=== PATIENT | male | born 1940 | race Caucasian/White ===

== ENCOUNTER 2016-09-06 09:43 | Inpatient (IN) | payer OTHER ==
[2016-08-24 11:22] VITALS: BMI 29.0
--- NOTE | 2016-08-24 11:55 | PAT Medication Instructions ---
Service Date Aug 24, 2016. Current Home Medication List Red Yeast Rice Extract (Red Yeast Rice), 1 CAP PO QAM Medication Instructions For Your Scheduled Surgery - Hold the following medications 2 weeks prior to surgery: Red Yeast Rice Extract (Red Yeast Rice), 1 CAP PO QAM *Nothing to eat or drink after midnight* If you have any questions please call us at [phone] or [phone] or [phone]
--- NOTE | 2016-08-24 12:34 | DIAGNOSTIC IMAGING REPORT ---
CHEST PREADMISSION(PA/LAT) CLINICAL HISTORY: Preoperative chest COMPARISON STUDY: No previous studies for comparison. FINDINGS: The cardiac and mediastinal contours are normal. There is no evidence of focal pulmonary consolidation. There is no evidence of failure. No pleural effusions are visualized.[ IMPRESSION: No active disease in the chest. Electronically signed by: Jimmy Smith M.D. 08/24/2016 12:33 PM Dictated Date/Time: 08/24/2016 12:33 PM
[2016-08-24 12:37] LABS: BASO % 0.2 %; BASO ABS # 0.02 K/uL (0-0.2); COMPLETE YES; EOS % 1.7 %; HEMATOCRIT 41.2 % (42-52); IG% 0.2 %; LYMPH % 17.6 %; LYMPH ABS # 1.67 K/uL (1.2-3.4); MEAN CELL VOLUME 93.4 fL (80-100); MEAN CORPUSCULAR HEMOGLOBIN 31.7 pg (25-34); MEAN PLATELET VOLUME 10.8 fL (7.4-10.4); MONO % 7.1 %; NEUT % 73.2 %; PLATELET COUNT 302 K/uL (130-400); RED BLOOD COUNT 4.41 M/uL (4.7-6.1); WHITE BLOOD COUNT 9.48 K/uL (4.8-10.8)
[2016-08-24 12:41] LABS: URINE APPEARANCE CLEAR (CLEAR); URINE BILIRUBIN NEG (NEG); URINE COLOR YELLOW; URINE NITRITE NEG (NEG); URINE PH 5.5 (4.5-7.5); URINE SPECIFIC GRAVITY 1.005 (1.000-1.030); UROBILINOGEN NEG (NEG)
[2016-08-24 12:42] LABS: MANUAL MICROSCOPIC REQUIRED? NO; REVIEW REQ? NO
[2016-08-24 12:57] LABS: PARTIAL THROMBOPLASTIN RATIO 1.1; PROTHROMBIN TIME (PATIENT) 10.7 SECONDS (9.0-12.0)
[2016-08-24 13:20] LABS: ESTIMATED AVERAGE GLUCOSE 117 mg/dl; HA1C FLAG Normal (Normal)
[2016-08-24 13:34] LABS: BUN/CREATININE RATIO 24.3 (10-20); CREATININE 0.77 mg/dl (0.60-1.40)
--- NOTE | 2016-08-29 09:47 | HISTORY & PHYSICAL EXAMINATION ---
DATE OF ADMISSION: 09/06/2016 CHIEF COMPLAINT: Left knee pain. HISTORY OF PRESENT ILLNESS: The patient is a 75-year-old gentleman with known osteoarthritis about his left knee. He recently had a corticosteroid injection by his family physician without significant benefit. He presented to our office for further evaluation. X-rays noted advanced degenerative changes and the decision was made to proceed with left total knee arthroplasty. PAST MEDICAL HISTORY: Denies. PAST SURGICAL HISTORY: None. MEDICATIONS: None. ALLERGIES: No known drug allergies. SOCIAL HISTORY AND REVIEW OF SYSTEMS: Noncontributory. PHYSICAL EXAMINATION: GENERAL: Well-nourished, well-developed elderly male who appears his stated age. HEAD, EYES, EARS, NOSE, AND THROAT: Normocephalic, atraumatic, extraocular movements intact, oropharynx pink and moist. NECK: Supple without adenopathy. LUNGS: Clear to auscultation bilaterally. HEART: Regular rate and rhythm. ABDOMEN: Soft, nontender, nondistended. EXTREMITIES: The upper extremity within normal limits. The left knee has a slight varus alignment. He complains primarily of medial compartment pain. His range of motion from 0 to 125 degrees. He has mild crepitus with range of motion. X-RAYS: X-rays were reviewed. He has a slight varus aligned knee. He has bone on bone arthritis of the medial compartment. There is moderate osteophyte formation and degenerative changes about the patellofemoral joint as well. ASSESSMENT: Left knee degenerative joint disease. PLAN: Risks versus benefits were discussed. Consent was obtained. The patient's primary care physician is Dr. Browning. Will proceed with left total knee arthroplasty upon preoperative workup and medical clearance.
[2016-09-06] VITALS (7 sets, daily range): BP systolic 126–161; BP diastolic 69–83; PULSE 30–70; TEMP 36–36.7; O2SAT 94–99; Ht 165.1 cm; Wt 79.2 kg
[~2016-09-06] VITALS: Ht 165.1 cm; Wt 79.2 kg
[~2016-09-06 09:43] MED LIST: ACETAMINOPHEN 500 MG TAB PO SCH; ATROPINE SULFATE 0.1 MG/ML 5ML SYR IV PRN; BUPIVACAINE 0.25% 30 ML VIAL ONE; BUPIVACAINE 0.5 % 5 MG/1 ML PF 10ML VIAL ONE; CEFAZOLIN 2000 MG/60 ML D5W 60 ML IV SCH; CeleBREX 200 MG CAP PO SCH; DEXAMETHASONE 4 MG TAB PO SCH; EpHEDrine SULFATE INJ 50 MG/ML AMP IV PRN; FAMOTIDINE 20 MG TAB PO SCH; FENTANYL CITRATE INJ 50 MCG/1 ML 2 ML VIAL IV PRN; GABAPENTIN 300 MG CAP PO SCH; LACTATED RINGER'S 1000ML 1,000 ML IV SCH; LACTATED RINGER'S 1000ML 500 ML IV SCH; LACTATED RINGER'S 1000ML IV SCH; ONDANSETRON INJ 2 MG/ML 2 ML VIAL IV PRN; RED1CAP5 PO; ROPIVACAINE 5MG/ML 30 ML 150 MG, BUPIVACAINE/EPINEPHR 0.5% MPF 30 ML, KETOROLAC TROMETH... INFIL SCH
--- NOTE | 2016-09-06 10:20 | History & Physical Bridge Note ---
H&P Re-Evaluation Bridge Note: I have examined the patient, reviewed the History & Physical and in the interval since the performance of the History & Physical I have noted the following changes of clinical significance: No changes noted
[2016-09-06] MEDS ORDERED: NURSING VERBAL MED ORDER ONE (10:30)
[2016-09-06] MEDS ORDERED: MIDAZOLAM HCL 1 MG/ML 2ML VIAL ONE (11:10)
[2016-09-06] MEDS ORDERED: FENTANYL CITRATE INJ 50 MCG/1 ML 2 ML VIAL ONE ×2 (11:10→13:01)
[2016-09-06] MEDS: TRANEXAMIC ACID AMP 1,000 MG in NSS 100ML IV SCH ×2 (11:30→11:34)
[2016-09-06] MEDS ORDERED: POVIDONE-IODINE OP SOLN 30 ML BTL ONE (11:31)
[2016-09-06] MEDS ORDERED: ORTHO JOINT ANESTHETIC ONE (11:31)
[2016-09-06] MEDS ORDERED: BACITRACIN 50000 UNIT VIAL ONE (11:31)
[2016-09-06] MEDS ORDERED: ONDANSETRON INJ 2 MG/ML 2 ML VIAL ONE (13:28)
[2016-09-06] MEDS ORDERED: LIDOCAINE HCL 2% 2 ML VIAL (20MG/ML) ONE (13:28)
[2016-09-06] MEDS ORDERED: ESMOLOL HCL 10 MG/ML 10 ML VIAL ONE (13:28)
[2016-09-06] MEDS ORDERED: ATROPINE SULFATE 0.4 MG/ML 1 ML VIAL ONE (13:28)
[2016-09-06] MEDS ORDERED: PROPOFOL IV EMULSION 10 MG/ML 20 ML VIAL IV ONE (13:28)
[2016-09-06] MEDS ORDERED: GLYCOPYRROLATE INJ 0.2 MG/ML VIAL ONE (13:28)
[2016-09-06] MEDS ORDERED: DEXAMETHASONE SOD INJ 4 MG/ML VIAL ONE (13:28)
--- NOTE | 2016-09-06 13:35 | [facility] Post Operative Brief Note ---
Immediate Operative Summary Operative Date Sep 06, 2016. Pre-Operative Diagnosis Left knee degenerative joint disease Post-Operative Diagnosis left knee degerative joint disease Procedure(s) Performed Left total knee arthroplasty Surgeon Dr. Loving Electrician Master Surgeon(s) Yann Fernandez PA-C Estimated Blood Loss 20cc Findings oa Specimens A. Left knee bone and tissue Disposition Recovery Room / PACU
[2016-09-06] MEDS ORDERED: ALUMINUM/MAGNESIUM/SIMETH (MAALOX MAX) 30 ML UDC PO PRN (14:15)
[2016-09-06] MEDS ORDERED: DiphenhydrAMINE HCL 50 MG/ML VIAL IV PRN (14:15)
[2016-09-06] MEDS ORDERED: TAMSULOSIN HCL 0.4 MG CAP PO PRN (14:15)
[2016-09-06] MEDS ORDERED: MAGNESIUM HYDROXIDE SUSP 30 ML UDC PO PRN (14:15)
[2016-09-06] MEDS ORDERED: ZOLPIDEM TARTRATE 5 MG TAB PO PRN (14:15)
[2016-09-06] MEDS ORDERED: OXYCODONE HCL IR 5 MG TAB (IMMEDIATE RELEASE) PO PRN (14:15)
[2016-09-06] MEDS ORDERED: ONDANSETRON INJ 2 MG/ML 2 ML VIAL IV PRN (14:15)
[2016-09-06] MEDS ORDERED: MoRPHine SULFATE 2 MG/ML CARP IV PRN (14:15)
[2016-09-06] MEDS ORDERED: BISACODYL 10 MG SUPP PR PRN (14:15)
--- NOTE | 2016-09-06 14:37 | DIAGNOSTIC IMAGING REPORT ---
LEFT KNEE 1 OR 2 VIEWS ROUTINE CLINICAL HISTORY: Postoperative evaluation COMPARISON: None FINDINGS: Alignment of the total left knee arthroplasty is anatomic. There is no fracture or unexpected radiopaque foreign body. Drains and skin elizabeth are present. IMPRESSION: Expected findings following total left knee arthroplasty. Electronically signed by: Lokesh Cerna M.D. 09/06/2016 2:36 PM Dictated Date/Time: 09/06/2016 2:36 PM
--- NOTE | 2016-09-06 14:58 | Anesthesiology Progress Note ---
Anesthesia Post Op Note Date & Time Sep 06, 2016 at 14:58 Vital Signs Pain Intensity: 0 Vital Signs Past 12 Hours Date Time Temp Pulse Resp B/P Pulse Ox O2 Delivery O2 Flow Rate FiO2 09/06/16 14:50 36.3 76 16 132/76 98 Nasal Cannula 2 09/06/16 14:40 75 16 136/74 97 Nasal Cannula 2 09/06/16 14:30 78 16 125/69 98 Mask 5 09/06/16 14:20 77 16 141/73 98 Mask 10 09/06/16 14:10 90 16 132/72 97 Mask 10 09/06/16 14:09 36.6 94 16 121/76 95 Mask 10 09/06/16 10:19 36.5 30 20 161/83 97 Room Air Notes Mental Status: alert / awake / arousable, participated in evaluation Pt Amnestic to Procedure: Yes Nausea / Vomiting: adequately controlled Pain: adequately controlled Airway Patency, RR, SpO2: stable & adequate BP & HR: stable & adequate Hydration State: stable & adequate Anesthetic Complications: no major complications apparent
--- NOTE | 2016-09-06 15:37 | OPERATIVE REPORT ---
DATE OF OPERATION: 09/06/2016 PREOPERATIVE DIAGNOSIS: Osteoarthritis left knee. POSTOPERATIVE DIAGNOSIS: Osteoarthritis left knee. PROCEDURE: Left total knee arthroplasty. SURGEON: Dr. Loving. SHINGLER: Yann Fernandez PA-C. ANESTHESIA: Spinal. COMPLICATIONS: None. OPERATION AND FINDINGS: Following induction of spinal anesthesia, the patient's left leg was prepped and draped in the usual sterile manner. Limb was exsanguinated with an Esmarch bandage and tourniquet was inflated to 350 mmHg. A longitudinal incision was made anteriorly. Subcutaneous tissue was sharply dissected. Electrocautery was used for hemostasis. Prepatellar bursa was incised and median parapatellar incision was performed. Patella was everted and the knee was flexed. Fat pad was removed to aid in visualization and the anterior and posterior cruciate ligaments were removed. The medial face of the tibia was cleared of soft tissue first with a Bovie and a Cope elevator. This tissue was retracted posteriorly using a blunt Hohmann. A Prakash retractor was used to expose the synovium above on the anterior aspect of the femur and this was removed down to bone. The PSI guide was placed on the distal femur and two pins were placed anteriorly and kept in position and two additional pins were placed distally and removed. The distal femoral cutting block was placed in position and the distal femoral cut was used in the +0 setting. Next, the cutting block was removed and the size 4 block was placed in the distal end of the femur. Care was taken to ensure appropriate external rotation and feeler gauge was used to ensure no notching would occur. The femoral block was centered on the distal femur and in the medial and lateral direction and was fixed using two bone screws. The gold pins were then removed. The oscillating saw was used to create the bone cuts and the distal femoral cutting block was removed and the reciprocating saw was used to further trim the femoral cuts as well as a deep in the area for the trochlear groove. Next, posterior condyle remnants were removed. Following this, a meniscal clamp and knife were utilized to remove the anterior portion of both medial and lateral meniscus. The proximal tibia PSI guide was placed into position and the proximal tibial cutting guide was screwed into position. The extra medullary alignment guide was utilized to ensure appropriate alignment. The proximal tibia was cut and the proximal tibial cutting block was removed and this bone fragment was removed. The appropriate guide was used to perform the notch cut on the distal femur and a lamina practice director and a cochlear knife were utilized to finish both medial and lateral meniscectomies to remove any remnants of the posterior or anterior cruciate ligaments. Following this, the distal femoral component was impacted into position and blunt Dianna was used to sublux the tibia anteriorly. The proximal tibia was sized and a size 3 tibial tray was chosen as the size to be used. This was put into position and appropriate external rotation and a double check with extramedullary alignment guide was performed. The canal for the tibial stem was prepared first with a 17 mm drill and then the punch and a mallet and the trial tibial poly was placed. A size 9 was chosen the size to be used. It was brought to extension and the patella was prepared with the patellar reamer. A size 36 component was chosen the size to be used. The trial component was placed and knee was taken through a full range of motion and there was found to be no lateral subluxation of the tibia. No lateral release was required. The trials were all removed. The final components were obtained and assembled. Cement was mixed. The knee was thoroughly irrigated and the ortho mix was injected about the knee joint. The final components were cemented into position. After thoroughly suctioning and drying the bone ends, all excess cement was removed. The knee was held in extension while the cement hardened. The wound was irrigated and closed over a Hemovac drain. #1 Vicryl was used to close the extensor mechanism. Subcutaneous tissues closed using 0 Dexon. Skin was closed with elizabeth. Sterile dressing of Adaptic, 4 x 4's, sterile Webril, and Joao was applied. The patient tolerated the procedure well. Recovery room stable. Due to the complex nature of the procedure, the entire surgery was performed with the operational assistance of Yann Fernandez PA-C. The phlebotomist medical lab assistant, under direct supervision, was involved in the actual performance of all aspects of the surgical procedure including hemostasis, tissue retraction and incision, instrument management, patient positioning, and wound closure. I attest to the content of the Intraoperative Record and any orders documented therein. Any exceptio ns are noted below.
[2016-09-06] MEDS ORDERED: MoRPHine SULFATE 10 MG/ML CARP/VIAL IV PRN (16:15)
[2016-09-06] MEDS ORDERED: MoRPHine SULFATE 4 MG/ML 1 ML CARP\\VIAL IV PRN (16:15)
[2016-09-06] MEDS: D5W AND 1/2NSS + 20MEQ KCL 1,000 ML IV SCH (16:57)
[2016-09-06] MEDS: ACETAMINOPHEN 500 MG TAB PO SCH (17:49)
[2016-09-06] MEDS: KETOROLAC TROMETHAMINE 15 MG/ML VIAL IV. SCH ×2 (17:50→23:37)
[2016-09-06] MEDS: FERROUS GLUCONATE 324 MG TAB PO SCH (17:50)
[2016-09-06] MEDS: CEFAZOLIN IV 2,000 MG in DEXTROSE 5% 50ML 50 ML IV SCH (20:49)
[2016-09-06] MEDS: SENNA 8.6 MG TAB PO SCH (20:50)
[2016-09-06] MEDS: OXYCODONE HCL 10 MG TABCR (OXYCONTIN) PO SCH (20:50)
[2016-09-06] MEDS: ASPIRIN 81 MG ECTAB PO SCH (20:50)
[2016-09-06] MEDS: DOCUSATE SODIUM 100 MG CAP PO SCH (20:50)
[2016-09-07] VITALS (7 sets, daily range): BP systolic 125–144; BP diastolic 52–73; PULSE 52–65; TEMP 36.4–36.7; O2SAT 94–98
[2016-09-07] MEDS: ACETAMINOPHEN 500 MG TAB PO SCH ×3 (02:00→19:02)
[2016-09-07] MEDS: D5W AND 1/2NSS + 20MEQ KCL 1,000 ML IV SCH (02:03)
[2016-09-07] MEDS: CEFAZOLIN IV 2,000 MG in DEXTROSE 5% 50ML 50 ML IV SCH (03:46)
[2016-09-07 05:27] LABS: HEMATOCRIT 38.7 % (42-52); MEAN CELL VOLUME 94.9 fL (80-100); MEAN CORPUSCULAR HEMOGLOBIN 32.1 pg (25-34); MEAN CORPUSCULAR HGB CONC 33.9 g/dl (32-36); MEAN PLATELET VOLUME 10.4 fL (7.4-10.4); PLATELET COUNT 303 K/uL (130-400); RED BLOOD COUNT 4.08 M/uL (4.7-6.1); WHITE BLOOD COUNT 13.92 K/uL (4.8-10.8)
[2016-09-07 05:56] LABS: BUN/CREATININE RATIO 15.4 (10-20); CALCIUM 7.6 mg/dl (8.5-10.1); POTASSIUM 4.5 mmol/L (3.5-5.1)
[2016-09-07] MEDS: KETOROLAC TROMETHAMINE 15 MG/ML VIAL IV. SCH ×2 (06:08→12:22)
--- NOTE | 2016-09-07 07:35 | Orthopedic Progress Note ---
Orthopedic Progress Note Date of Service Sep 07, 2016. Subjective Post OP Day: 1 Reports: feeling well Objective N/V intact, dressing C/D/I (Hemovac in place), toes mobile Date Time Temp Pulse Resp B/P Pulse Ox O2 Delivery O2 Flow Rate FiO2 09/07/16 03:50 36.4 55 18 125/62 98 Room Air 09/06/16 23:30 Room Air 09/06/16 23:00 36.6 52 18 126/71 94 Room Air 09/06/16 18:45 36.6 70 16 126/69 95 Room Air 09/06/16 17:36 36.7 69 18 157/78 99 2.0 09/06/16 16:33 36.0 61 16 145/73 98 Nasal Cannula 2.0 09/06/16 16:00 36.4 58 16 153/75 97 Nasal Cannula 2.0 09/06/16 15:55 97 Nasal Cannula 2.0 09/06/16 15:30 97 Nasal Cannula 2.0 09/06/16 15:20 58 16 132/73 98 Nasal Cannula 2 09/06/16 15:05 59 16 133/74 98 Nasal Cannula 2 09/06/16 14:50 36.3 76 16 132/76 98 Nasal Cannula 2 09/06/16 14:40 75 16 136/74 97 Nasal Cannula 2 09/06/16 14:30 78 16 125/69 98 Mask 5 09/06/16 14:20 77 16 141/73 98 Mask 10 09/06/16 14:10 90 16 132/72 97 Mask 10 09/06/16 14:09 36.6 94 16 121/76 95 Mask 10 09/06/16 10:19 36.5 30 20 161/83 97 Room Air Laboratory Results 24 Hours: Test 09/07/16 05:14 Hematocrit 38.7 % Hemoglobin 13.1 g/dL Assessment & Plan Assessment: 75 yo male stable POD #1 s/p left TKA Plan: 1. Med management 2. DVT prophylaxis- ASA, TEDs, SCDs 3. PT/OT 4. D/C planning- home w/ OPPT
[2016-09-07] MEDS: FERROUS GLUCONATE 324 MG TAB PO SCH ×3 (09:18→19:02)
[2016-09-07] MEDS: ASPIRIN 81 MG ECTAB PO SCH ×2 (09:19→20:27)
[2016-09-07] MEDS: MULTIVITAMIN TAB PO SCH (09:19)
[2016-09-07] MEDS: PANTOprazole SOD 40 MG TAB PO SCH (09:19)
[2016-09-07] MEDS: DOCUSATE SODIUM 100 MG CAP PO SCH ×2 (09:19→20:27)
[2016-09-07] MEDS: OXYCODONE HCL 10 MG TABCR (OXYCONTIN) PO SCH ×2 (09:22→20:26)
[2016-09-07] MEDS: SENNA 8.6 MG TAB PO SCH (20:27)
[2016-09-08] MEDS: ACETAMINOPHEN 500 MG TAB PO SCH ×2 (03:30→10:04)
[2016-09-08 06:23] VITALS: BP 151/70; PULSE 69; TEMP 36.7; O2SAT 93
--- NOTE | 2016-09-08 07:31 | Orthopedic Progress Note ---
Orthopedic Progress Note Date of Service Sep 08, 2016. Subjective Post OP Day: 2 Reports: feeling well, pain controlled w PO medications, Denies: SOB, calf pain , chest pain, complaints, light headedness, nausea / vomiting Additional Notes: PER PT patient did very well and feels that he is able to go home instead of rehab, patient agrees as his son lives next door to him and can take him to PT and help at home. Objective calves soft nontender, N/V intact, capillary refill less than 2 sec., dressing C /D/I, A&O x3, toes mobile Silverlon in tact. Date Time Temp Pulse Resp B/P Pulse Ox O2 Delivery O2 Flow Rate FiO2 09/08/16 06:23 36.7 69 18 151/70 93 Room Air 09/08/16 00:00 Room Air 09/07/16 23:11 36.6 65 16 144/59 94 Room Air 09/07/16 17:36 62 138/73 09/07/16 15:30 Room Air 09/07/16 14:57 36.7 63 18 137/52 96 Room Air 09/07/16 11:52 36.6 60 14 128/70 96 Room Air 09/07/16 08:37 97 Room Air 09/07/16 08:19 36.7 52 16 127/73 97 Room Air Assessment & Plan Assessment: 75 yo male stable POD #2 s/p left TKA Plan: 1. Med management 2. DVT prophylaxis- ASA, TEDs, SCDs 3. PT/OT 4. D/C planning- Home w OPPT today. Inhouse Planning Pain Management: Oxycontin, Morphine, PO Tylenol, Oxy IR DVT Prophylaxis: TEDs, SCDs, ASA Discharge Planning Discharge Planning: home with oppt Pain Management: Oxycontin, PO Tylenol, Oxy IR DVT Prophylaxis: TEDs, ASA Therapy: Physical Therapy, Occupational Therapy
[2016-09-08] MEDS: OXYCODONE HCL 10 MG TABCR (OXYCONTIN) PO SCH (07:35)
[2016-09-08] MEDS: FERROUS GLUCONATE 324 MG TAB PO SCH (07:36)
[2016-09-08] MEDS: PANTOprazole SOD 40 MG TAB PO SCH (07:36)
[2016-09-08] MEDS: DOCUSATE SODIUM 100 MG CAP PO SCH (07:36)
[2016-09-08] MEDS: ASPIRIN 81 MG ECTAB PO SCH (07:36)
[2016-09-08] MEDS: MULTIVITAMIN TAB PO SCH (07:36)
[2016-09-08 07:51] VITALS: BP 159/89; PULSE 77; TEMP 36.7; O2SAT 97
[2016-09-08 08:09] VITALS: BP 152/89; PULSE 77; TEMP 36.7; O2SAT 97
[2016-09-08] MEDS ORDERED: ONDA8TAB6 PO (08:58)
[2016-09-08] MEDS ORDERED: OXYSR10 PO (08:58)
[2016-09-08] MEDS ORDERED: ASPEC81 PO (08:58)
[2016-09-08] MEDS ORDERED: ACET-1138 PO (08:58)
[2016-09-08] MEDS ORDERED: RXC5 PO (08:58)
--- NOTE | 2016-09-08 08:58 | Discharge Instructions ---
Discharge Instructions Admission Reason for Admission: Left Knee Degenerative Joint Disease Discharge Discharge Diagnosis / Problem: Lt TKA Discharge Goals Goal(s): Improve function Activity Recommendations Activity Limitations: as noted below . Instructions / Follow-Up Instructions / Follow-Up ACTIVITY RECOMMENDATIONS: SELF CARE INSTRUCTIONS AFTER TOTAL KNEE REPLACEMENT A. You may need to continue a physical therapy program after discharge from the hospital. There are several options available to you. Your doctor will assist you in selecting the best one for you. 1. An out-patient facility 2 to 3 times a week for therapy or home therapy. 2. Continue working on all exercises taught to you in the hospital. Your goals should be to increase bending of your knee to 90 degrees and beyond and to fully straighten your knee. B. You may progress at your own pace from walking with a walker or crutches to a cane; then to no assistive devices. C. Make walking a part of your daily routine. Be up as much as comfortable with rest periods throughout the day. Rest with leg elevation is very important. Use the ice wrap frequently for the first 3-4 weeks. D. There are no restrictions on activities. You may ride in a car, shop, participate in ore dryer and all social activities. E. Wear the long elastic stockings (DANIELLE hose) 20 hours a day for 2 weeks after surgery. They can be removed several times a day for laundering and for a bath. F. You may shower, no tub baths until cleared by your doctor. SPECIAL CARE INSTRUCTIONS: VERY IMPORTANT TO READ AND REVIEW A. There are a few signs you need to watch for after you are home. Call [facility] if you notice any of the followin. Increased severe knee pain. Some pain is expected especially when you exercise. 2. Increased swelling in your leg or knee; pain or swelling of the calf muscle in either lower leg. 3. Any fluid drainage from the incision. 4. Shortness of breath or chest pain. B. Please call [facility] at if you have any concerns or questions about your operation or recovery. The doctor or his nurse will return your call promptly. C. You must take antibiotics before dental work, bladder, bowel or other surgery. Your doctor will provide you with a permanent care to carry describing this precaution. IMPORTANT: * REMEMBER TO TAKE ASPIRIN, 81 MG, TWICE DAILY FOR 4 WEEKS UNLESS OTHERWISE DIRECTED. THIS IS YOUR BLOOD THINNER. * HIGH RISK PATIENTS MAY BE PRESCRIBED A STRONGER BLOOD THINNER. THIS WILL BE PROVIDED AT DISCHARGE. * CALL IF INCREASED PAIN, REDNESS, DRAINAGE OR FEVER GREATER THAT 101. * WEAR DANIELLE HOSE 20 HOURS PER DAY FOR 2 WEEKS. * YOU MAY HAVE A LARGE BAND-AID LIKE DRESSING (SILVERON). THIS WILL REMAIN ON YOUR INCISION FOR 7 DAYS, THEN CAN BE REMOVED. IF INCISION IS LEAKING THROUGH DRESSING, CALL THE OFFICE . FOLLOW UP VISIT: If appointment is not already scheduled: Please call [facility] to make a follow-up appointment for 2 weeks after your surgery at . Current Hospital Diet Patient's current hospital diet: Regular Diet Discharge Diet Recommended Diet: Regular Diet Procedures Procedures Performed: Left total knee arthroplasty-Cemented Pending Studies Studies pending at discharge: no Laboratory Results Hemoglobin A1c Test 08/24/16 12:01 Range/Units Estimated Average Glucose 117 mg/dl Hemoglobin A1c 5.7 H 4.5-5.6 % Medical Emergencies . Who to Call and When: Medical Emergencies: If at any time you feel your situation is an emergency, please call [phone] immediately. . Non-Emergent Contact Non-Emergency issues call your: Primary Care Provider . "Provider Documentation" section prepared by Anish Ovalle. VTE Core Measure Inpt VTE Proph given/why not?: Other Anticoagulation (asa), T.E.D. Stockings, SCD's
[2016-09-08 09:38] VITALS: BP 152/89; PULSE 77; TEMP 36.7; O2SAT 97
--- NOTE | 2016-09-12 15:32 | DISCHARGE SUMMARY ---
DISCHARGE DIAGNOSIS: Degenerative joint disease, left knee. SECONDARY DIAGNOSIS: Essentially benign. CONSULTATIONS: None. COMPLICATIONS: None. PROCEDURES: Left total knee arthroplasty performed by Dr. Loving on 09/06/2016. BRIEF HISTORY OF PRESENT ILLNESS: As dictated in the history and physical. HOSPITAL SUMMARY: The patient was admitted on the above date and had the above-noted surgery performed which he tolerated well. On the first postoperative day, the patient was feeling well and had no complaints and neurovascularly was intact. Dressings were clean, dry and intact. Toes were mobile. Vital signs were stable. He was afebrile. Hemoglobin was 13.1. He was started on physical therapy protocol and continued on DVT prophylaxis and pain management. By his second postoperative day, he was feeling well and pain was controlled and he was feeling well and was asking to go home instead of going to a rehab hospital. Calves were soft and nontender. Neurovascularly was intact. Toes were mobile. Vital signs were stable. He was afebrile. In physical therapy, he was ambulating 200 feet x2 independently and going up and down 16 steps of the rail independently. Physical therapy recommended the patient could be discharged to home and he was otherwise remaining stable and progressing well and it was felt that he could be discharged to home on 09/08/2016. For further review, please see chart. LABORATORY AND X-RAY DATA: As per chart. DISCHARGE INSTRUCTIONS: The patient was discharged to home in satisfactory condition on 09/08/2016. DIET: Regular. ACTIVITY: Follow TK instruction sheets and special care instructions as noted. Follow up with Dr. Loving in 2 weeks. The patient to call for appointment if one has not been made for you. DISCHARGE MEDICATIONS: Acetaminophen 1000 mg p.o. q. 8 hours, aspirin 81 mg p.o. b.i.d. for 30 days, Zofran 8 mg p.o. q. 8 hours p.r.n., OxyContin 10 mg p.o. q. 12 hours, oxycodone 5-10 mg p.o. q. 4 hours p.r.n. and resume red yeast rice extract daily.
--- NOTE | 2016-09-18 14:16 | EDITING REQUIRED CODING QUERY ---
SUPPORTING DIAGNOSIS NEEDED Dr. Loving, A supporting diagnosis is required for the test/procedure performed on this patient in order for us to be reimbursed by the patient's insurance. Please provide a supporting diagnosis for the following test/procedure listed below next to the test name along with your signature. *If there is no additional diagnosis for this patient that would support the following test/procedure please document that below next to the test/procedure. Test(s)/Procedure(s) that require a supporting diagnosis: * 17197 GLYCATED HEMOGLOBIN DIAGNOSIS: DATE OF SERVICE: 08/24/16 Provider Signature: Date: Thank you David Mcelroy [facility] Information Management Once completed, please kindly fax back to [phone] For questions please call [phone]
== END 2016-09-08 11:31 | disposition home or self-care (01) | DRG 470 ==
LOC: ENRESERVTM → ENRESERVDT → C.ACU 09:43 → C.3E 10:11
PROC: 0SRD0J9 Replacement of Left Knee Joint with Synthetic Substitute, Cemented, Open Approach (ICD-10-PCS; principal; 2016-09-06 12:15)
DX: M17.12 Unilateral primary osteoarthritis, left knee (principal)